=== PATIENT | female | born 1980 | race Caucasian/White ===

== ENCOUNTER 2016-12-01 09:18 | Emergency (ER) | payer OTHER ==
[2016-12-01 09:23] VITALS: RESP 16
[2016-12-01] MEDS ORDERED: fentaNYL 100 MCG/2 ML INJ IVP ONE ×2 (09:31→11:36)
[2016-12-01] MEDS ORDERED: NS 1,000 ML IV ONE (09:32)
[2016-12-01 09:43] LABS: % IMMATURE GRANULYOCYTES 0.7 % (0.0-1.1); ABSOLUTE IMMATURE GRANULOCYTES 0.06 10^3/uL (0.00-0.10); ADD DIFF? NO; ADD MORPH? NO; ADD SCAN? NO; ATYPICAL LYMPHOCYTE FLAG 0 (0-99); FRAGMENT RBC FLAG 0 (0-99); HEMATOCRIT 43.3 % (38.0-47.0); HEMOGLOBIN 14.9 g/dL (12.6-16.3); LEFT SHIFT FLG 0 (0-99); LIPEMIA HEMOLYSIS FLAG 90 (0-99); MEAN CELL HEMOGLOBIN 30.7 pg (27.9-34.1); MEAN CELL HEMOGLOBIN CONCENTR. 34.4 g/dL (32.4-36.7); MEAN CELL VOLUME 89.3 fL (81.5-99.8); MEAN PLATELET VOLUME 10.4 fL (8.7-11.7); PLATELET CLUMPS FLAG 0 (0-99); PLATELET COUNT 259 10^3/uL (150-400); RED BLOOD CELL COUNT 4.85 10^6/uL (4.18-5.33); RED CELL DISTRIBUTION WIDTH 12.4 % (11.5-15.2)
[2016-12-01] MEDS ORDERED: ONDANSETRON 4 MG/2 ML VIAL IVP ONE (09:47)
[2016-12-01] MEDS ORDERED: KETOROLAC 30 MG/1 ML SDV IVP ONE (09:55)
--- NOTE | 2016-12-01 09:57 | EDPHY ---
H & P Stated Complaint: RLQ pain starting last night, worse this AM, sent by PCP Time Seen by Provider: 12/01/16 09:35 HPI/ROS: CHIEF COMPLAINT: Right lower quadrant abdominal pain since last evening HISTORY OF PRESENT ILLNESS: 36-year-old female via private vehicle complaining of acute right lower quadrant abdominal pain with no radiation intermittently since last evening. Notes history of similar over the past several weeks. This morning she had appoint with her neurologist for her seizure disorder history and was told to go to the ER for evaluation of right lower quadrant pain possible appendicitis. Pain is reproducible with palpation and with going over bumps. Positive nausea. No vomiting. Positive diarrhea without melena or hematochezia. No fever or chills. No trauma. Last menstrual period was 2 weeks ago. No abnormal vaginal bleeding or discharge. Last oral intake was last evening PRIMARY CARE PROVIDER: Uriel Melton REVIEW OF SYSTEMS: A ten point review of systems was performed and is negative with the exception of the items mentioned in the HPI PAST MEDICAL & SURGICAL HISTORY: Seizure disorder. x3 SOCIAL HISTORY: nonsmoker PHYSICAL EXAM (Prior to examination, patient consented to physical exam, hands were washed and my usual and customary physical exam procedures followed) 1) GENERAL: Well-developed, well-nourished, alert and oriented. Appears uncomfortable. 2) HEAD: Normocephalic, atraumatic 3) HEENT: Pupils equal, round, reactive to light bilaterally. Sclera anicteric. 4) NECK: Full range of motion, no meningeal signs. 5) LUNGS: Clear auscultation bilaterally, no wheezes, no rhonchi, no retractions. 6) HEART: Regular rate and rhythm, no murmur, no heave, no gallop. 7) ABDOMEN: guarding abdomen, tender to palpation right lower quadrant positive McBurney's point pain. , negative Jaime's, negative Rovsing's, negative peritoneal sign, 8) MUSCULOSKELETAL: Moving all extremities, no focal areas of tenderness, no obvious trauma. No peripheral edema or discoloration. 9) BACK: No CVA tenderness, no midline vertebral tenderness, no fluctuance, no step-off, no obvious trauma, no visual or palpable abnormality. 10) SKIN: No rash, no petechiae. 11) Psychiatric: Patient is oriented X 3, there is no agitation. DIFFERENTIAL DIAGNOSIS: My differential diagnosis includes, but is not limited to, acute appendicitis, acute cholecystitis, bowel obstruction, acute pancreatitis, ovarian torsion, ectopic , gastritis and urinary tract infection. The patient understands that this diagnosis is provisional and can never be 100% accurate. This is a partial list of diagnoses considered. These considerations are based on history, physical exam, past history and reassessment. - Personal History LMP (Females 10-55): 8-14 Days Ago Current Tetanus/Diphtheria Vaccine: Yes Current Tetanus Diphtheria and Acellular Pertussis (TDAP): Yes - Medical/Surgical History Hx Asthma: No Hx Chronic Respiratory Disease: No Hx Diabetes: No Hx Cardiac Disease: No Hx Renal Disease: No Hx Cirrhosis: No Hx Alcoholism: No Hx HIV/AIDS: No Hx Splenectomy or Spleen Trauma: No Other PMH: epilepsy. csection. DNC. laparotomy - Social History Smoking Status: Never smoked Constitutional: Initial Vital Signs Temperature (C) 36.9 C 12/01/16 09:22 Heart Rate 98 12/01/16 09:22 Respiratory Rate 16 12/01/16 09:22 Blood Pressure 150/101 H 12/01/16 09:22 O2 Sat (%) 95 12/01/16 09:22 O2 Delivery Mode Room Air Allergies/Adverse Reactions: morphine Allergy (Verified 12/01/16 09:21) Penicillins Allergy (Verified 12/01/16 09:21) Home Medications: Medication Instructions Recorded Divalproex Sodium [Depakote] 1,000 mg PO 09/16/14 Citalopram 12/01/16 Medical Decision Making - Diagnostics Imaging Results: Imaging Impressions Abdomen Ultrasound 12/01/16 09:55 Impression: 1. Thickened endometrial stripe. This can be seen with endometrial hyperplasia or possibly polyps. 2. Normal-appearing ovaries. Tenderness is greatest over the right ovary without underlying abnormality. 3. Normal right lower quadrant ultrasound. However, the appendix could not be positively identified. If there is high clinical concern for appendicitis, consider CT imaging as clinically directed. Findings discussed with Hemalatha JENNINGS at 11:21 hour, 12/01/2016. Pelvic/Renal Ultrasound 12/01/16 09:55 Impression: 1. Thickened endometrial stripe. This can be seen with endometrial hyperplasia or possibly polyps. 2. Normal-appearing ovaries. Tenderness is greatest over the right ovary without underlying abnormality. 3. Normal right lower quadrant ultrasound. However, the appendix could not be positively identified. If there is high clinical concern for appendicitis, consider CT imaging as clinically directed. Findings discussed with Hemalatha JENNINGS at 11:21 hour, 12/01/2016. Abdomen CT 12/01/16 11:32 Impression: 1. Air in the otherwise normal bladder, which could be related to instrumentation or infection. Elongated right lobe of the liver, which could be related to a Fady's lobe (normal variant) or hepatomegaly. 2. Likely benign 3 mm right lower lobe nodule. In a nonsmoker with no cancer history, no further follow up is recommended. In a high-risk patient, unenhanced chest CT in one year is considered optional per Fleischner Society guidelines. 4. Additional findings as above. Findings discussed with Dang Garcia PA-C, on 12/01/2016 at 1218 hours. ED Course/Re-evaluation: 11:30 a.m.: Abdominal ultrasonography is nondiagnostic for appendicitis, nonvisualized. Patient remains focally tender. Recommended CT imaging. Indications risks benefits discussed with patient she verbalizes consent. 12:35 p.m.: Re-evaluation. Discussed her imaging results showing a nonvisualized appendix however no secondary signs of appendicitis. She remains guarding her abdomen is focally tender at McBurney's point. In addition she is noted to have air in her bladder specific etiology of which is not completely clear she has had no instrumentation performed in the emergency department. On further interviewing she notes no history of pneumaturia or fecaluria. I discussed the case with Dr. Carrasco in the ER. Will consult with General surgery. 12:45 p.m.: Phone consultation Dr. Chris Herring who will consult in the ER. - Data Points Laboratory Results: Laboratory Results 12/01/16 09:35 12/01/16 09:35 12/01/16 12/01/16 12/01/16 09:50 09:35 09:35 WBC RBC Hgb Hct MCV MCH MCHC RDW Plt Count MPV Neut % (Auto) Lymph % (Auto) [place] % (Auto) Eos % (Auto) Baso % (Auto) Nucleat RBC Rel Count Absolute Neuts (auto) Absolute Lymphs (auto) Absolute Monos (auto) Absolute Eos (auto) Absolute Basos (auto) Absolute Nucleated RBC Immature Gran % Immature Gran # Sodium Potassium Chloride Carbon Dioxide Anion Gap BUN Creatinine Estimated GFR Glucose Calcium Total Bilirubin 0.4 mg/dL mg/dL (0.1-1.4) Conjugated Bilirubin 0.3 mg/dL mg/dL (0.0-0.5) Unconjugated Bilirubin 0.1 mg/dL mg/dL (0.0-1.1) AST 24 IU/L IU/L (14-46) ALT 32 IU/L IU/L (9-52) Alkaline Phosphatase 102 IU/L IU/L (38-126) Total Protein 8.0 g/dL g/dL (6.3-8.2) Albumin 4.5 g/dL g/dL (3.5-5.0) Lipase 94.0 IU/L IU/L (23-300) Beta HCG, Qual NEGATIVE Urine Color YELLOW Urine Appearance HAZY Urine pH 8.0 H (5.0-7.5) Ur Specific [place] 1.008 (1.002-1.030) Urine Protein NEGATIVE (NEGATIVE) Urine Ketones NEGATIVE (NEGATIVE) Urine Blood NEGATIVE (NEGATIVE) Urine Nitrate NEGATIVE (NEGATIVE) Urine Bilirubin NEGATIVE (NEGATIVE) Urine Urobilinogen NEGATIVE EU EU (0.2-1.0) Ur Leukocyte Esterase NEGATIVE (NEGATIVE) Urine RBC 3-5 /hpf H /hpf (0-3) Urine WBC 1-3 /hpf /hpf (0-3) Ur Epithelial Cells TRACE /lpf /lpf (NONE-1+) Urine Mucus TRACE /lpf /lpf (NONE-1+) Urine Glucose NEGATIVE (NEGATIVE) 12/01/16 12/01/16 09:35 09:35 WBC 8.27 10^3/uL 10^3/uL (3.80-9.50) RBC 4.85 10^6/uL 10^6/uL (4.18-5.33) Hgb 14.9 g/dL g/dL (12.6-16.3) Hct 43.3 % % (38.0-47.0) MCV 89.3 fL fL (81.5-99.8) MCH 30.7 pg pg (27.9-34.1) MCHC 34.4 g/dL g/dL (32.4-36.7) RDW 12.4 % % (11.5-15.2) Plt Count 259 10^3/uL 10^3/uL (150-400) MPV 10.4 fL fL (8.7-11.7) Neut % (Auto) 56.7 % % (39.3-74.2) Lymph % (Auto) 34.3 % % (15.0-45.0) [place] % (Auto) 7.0 % % (4.5-13.0) Eos % (Auto) 0.8 % % (0.6-7.6) Baso % (Auto) 0.5 % % (0.3-1.7) Nucleat RBC Rel Count 0.0 % % (0.0-0.2) Absolute Neuts (auto) 4.68 10^3/uL 10^3/uL (1.70-6.50) Absolute Lymphs (auto) 2.84 10^3/uL 10^3/uL (1.00-3.00) Absolute Monos (auto) 0.58 10^3/uL 10^3/uL (0.30-0.80) Absolute Eos (auto) 0.07 10^3/uL 10^3/uL (0.03-0.40) Absolute Basos (auto) 0.04 10^3/uL 10^3/uL (0.02-0.10) Absolute Nucleated RBC 0.00 10^3/uL 10^3/uL (0-0.01) Immature Gran % 0.7 % % (0.0-1.1) Immature Gran # 0.06 10^3/uL 10^3/uL (0.00-0.10) Sodium 139 mEq/L mEq/L (134-144) Potassium 4.4 mEq/L mEq/L (3.5-5.2) Chloride 106 mEq/L mEq/L (97-110) Carbon Dioxide 22 mEq/l mEq/l (22-31) Anion Gap 11 mEq/L mEq/L (8-16) BUN 10 mg/dL mg/dL (7-23) Creatinine 0.6 mg/dL mg/dL (0.6-1.0) Estimated GFR > 60 Glucose 96 mg/dL mg/dL (70-100) Calcium 9.8 mg/dL mg/dL (8.5-10.4) Total Bilirubin Conjugated Bilirubin Unconjugated Bilirubin AST ALT Alkaline Phosphatase Total Protein Albumin Lipase Beta HCG, Qual Urine Color Urine Appearance Urine pH Ur Specific [place] Urine Protein Urine Ketones Urine Blood Urine Nitrate Urine Bilirubin Urine Urobilinogen Ur Leukocyte Esterase Urine RBC Urine WBC Ur Epithelial Cells Urine Mucus Urine Glucose Medications Given: Discontinued Medications Fentanyl (Sublimaze) 50 mcg IVP EDNOW ONE Stop: 12/01/16 09:32 Last Admin: 12/01/16 09:39 Dose: 50 mcg Fentanyl (Sublimaze) 100 mcg IVP EDNOW ONE Stop: 12/01/16 11:37 Last Admin: 12/01/16 11:55 Dose: 100 mcg Sodium Chloride (Ns) 1,000 mls @ 0 mls/hr IV ONCE ONE PRN Reason: Wide Open Stop: 12/01/16 09:33 Last Admin: 12/01/16 09:39 Dose: 1,000 mls Ketorolac Tromethamine (Toradol) 30 mg IVP EDNOW ONE Stop: 12/01/16 09:56 Last Admin: 12/01/16 10:40 Dose: 30 mg Ondansetron HCl (Zofran) 4 mg IVP EDNOW ONE Stop: 12/01/16 09:48 Last Admin: 12/01/16 10:40 Dose: 4 mg Departure - Departure Disposition: Home, Routine, Self-Care Condition: Good Referrals: URIEL MELTON [Primary Care Provider] - 12/04/16
[2016-12-01 10:00] LABS: COLOR YELLOW; LEUKOCYTE ESTERASE,URINE NEGATIVE (NEGATIVE); NITRITE,URINE NEGATIVE (NEGATIVE)
[2016-12-01 10:02] LABS: ANION GAP 11 mEq/L (8-16); CALCIUM 9.8 mg/dL (8.5-10.4); CARBON DIOXIDE 22 mEq/l (22-31); CHLORIDE 106 mEq/L (97-110); CREATININE 0.6 mg/dL (0.6-1.0); GLOMERULAR FILTRATION RATE > 60; GLUCOSE 96 mg/dL (70-100); POTASSIUM 4.4 mEq/L (3.5-5.2); SODIUM 139 mEq/L (134-144)
[2016-12-01 10:03] LABS: ALBUMIN 4.5 g/dL (3.5-5.0); BILIRUBIN,TOTAL 0.4 mg/dL (0.1-1.4); BILIRUBIN-CONJUGATED 0.3 mg/dL (0.0-0.5); BILIRUBIN-UNCONJUGATED 0.1 mg/dL (0.0-1.1)
[2016-12-01 10:03] LABS: MUCUS TRACE /lpf (NONE-1+)
[2016-12-01] MEDS ORDERED: IOPAMIDOL (ISOVUE-300) 100 ML BTL IV ONE (11:37)
--- NOTE | 2016-12-01 14:33 | GCON ---
[f rep st] CONSULTATION CONSULTATION REQUESTED BY: Oziel Jameson. HISTORY: The patient is a 36-year-old white female, who had the acute onset of a dull right lower quadrant pain at 5 p.m. yesterday. It advanced from an achy to a sharper pain and moving made it worse. As time went on it progressively became more intense. She did not have dinner last night, and slept poorly overnight. She saw her neurologist this morning, who directed her to come to the emergency department. She has not had a recent upper respiratory tract infection, but did have diarrhea today. She has not had any travel outside the [place], or antibiotic use in the last 6 months. There is no history of inflammatory bowel disease. She has had a similar episode a week and a half ago, which lasted approximately a minute. Abdominal surgeries includes 3 C-sections. After her 2nd she had retained placenta that required 2 D&Cs. On the 2nd D&C, she had a uterine perforation requiring an exploratory laparotomy. She presented to her neurologist this morning and was referred to the emergency room. Ultrasound evaluation was carried out. Appendix could not be identified. Ultrasound of her kidney was unremarkable. A CAT scan was performed, which showed 2 focal areas of air in her anterior bladder wall. It did not show any signs of appendicitis, it did not show any signs of thickened terminal ileum, it did show constipation. Mesenteric adenitis was also identified. I was asked to come see the patient, to help establish a diagnosis. SOCIAL HISTORY: She does not smoke. She drinks alcohol on a very rare basis. ALLERGIES: As a young girl, she had a rash with penicillin, and does not take it currently. She has had morphine in the past and also has had a rash with morphine. MEDICATIONS: She takes Depakote 1000 mg q.h.s. for seizures. Her last seizure was 2-1/2 half years ago. There is no history of rheumatic fever, tuberculosis, hepatitis or HIV. She did have 3 units of blood with her uterine perforation. PAST MEDICAL HISTORY: She does have asthma and has used an albuterol inhaler once in the last year. She had a right breast lump, which led to a mammogram, and was felt to be unremarkable and nothing was done. REVIEW OF SYSTEMS: Otherwise quite negative. PHYSICAL EXAMINATION: GENERAL: She feels better with her legs drawn up. HEENT: Her skull is normocephalic and atraumatic. NEURO: No focal lateralizing neurologic findings. GCS is 15. She is pleasant, awake, and alert. NECK: Nontender. Spinal processes were carefully palpated. Thyroid is not enlarged. Bruits are not appreciated. BACK: Carefully palpated. Back is grossly normal. There is no cervical, supraclavicular lymphadenopathy. There is no axillary or inguinal lymphadenopathy. LUNGS: Clear to auscultation. CHEST: Stable to AP and lateral compression. Note is made, she does not recall any trauma to her right flank or abdomen. CARDIAC: Shows S1, S2 to be normal. Normal split of S2, without murmurs, rubs , or gallops. ABDOMEN: Generous. She is tender with cough at McBurney's point at a level of 7/10. Bowel sounds are normal. Psoas and obturator signs are negative to palpation. The left upper quadrant is 1 on a scale of 1-10, left mid abdomen is 1, left lower quadrant is 1, epigastrium is 1, periumbilical area is 1, suprapubic area is 2. Right upper quadrant is 3, right mid abdomen 7, right lower quadrant is 4. Over the iliac crest it is also 6. LABORATORY DATA: Her white blood cell count is 8.7. Hematocrit is 43, her platelet count is 256. Beta HCG is negative. Her lipase is negative. Her urine is unremarkable. There is a 3 mm nodule in her right middle lobe. IMPRESSION: This patient has right lower quadrant pain, which in of itself is impressive and suggests appendicitis. Weighed against is that there is a normal white blood cell count, normal temperature and unremarkable findings on CT. Additional diagnoses that are excluded are inflammatory bowel disease, as there is no thickening of the terminal ileum. I cannot absolutely rule out a Meckel's diverticulum, but I did not see that on the CAT scan. There was no ovarian pathology identifiable at this time. Mesenteric adenitis is present. I suggest that is the most probable diagnosis. Constipation is an additional problem. I would suggest stool for enteric pathogens. The two air bubbles in the bladder wall, I feel are unrelated to this process, and can be followed up by Urology. Certainly, I would treat her for discomfort, with the understanding I think she will be feeling better in the next 2-3 days, and if they do not, then reevaluation would be appropriate. The patient understands the diagnostic conundrum. She understands the planned procedure. /[id number]/MODL MTDD
[2016-12-01 14:46] VITALS: O2SAT 96
[2016-12-01 14:48] VITALS: BP 117/67; PULSE 77; TEMP 97.9
== END 2016-12-01 14:47 | disposition home or self-care (01) ==
DX: R10.31 Right lower quadrant pain (principal); N32.9 Bladder disorder, unspecified
CPT/HCPCS: 96374; J1885; J2405; J3010; Q9967

== ENCOUNTER 2017-10-11 09:41 | Emergency (ER) | payer OTHER ==
[2017-10-11 09:48] VITALS: TEMP 98.1
[2017-10-11 10:03] VITALS: BP 143/77; PULSE 92; RESP 16
--- NOTE | 2017-10-11 10:08 | EDPHY ---
H & P Time Seen by Provider: 10/11/17 09:54 HPI/ROS: CHIEF COMPLAINT: Left lower back pain HISTORY OF PRESENT ILLNESS: This patient is a 37 y/o female complaining of left lower back pain. Last night around dinner time, she developed a sudden sharp shooting pain in her left lower back. This has remained constant and moderate. The pain worsens with change in position or sitting. Associated with LLQ abdominal pain, nausea and one episode of loose stool. She took 400mg ibuprofen this morning for relief. Concerned about kidney stone. She called her PCP, Dr. Roca's office, and they recommended she present to the emergency department. LMP was 2 weeks ago, regular. Family history significant for kidney stones. Denies urinary sx, fever, vomiting. REVIEW OF SYSTEMS: A 10 point review of systems was performed and is negative with the exception of the elements mentioned in the history of present illness. Past Medical/Surgical History: Csection BTL Epilepsy Social History: Nonsmoker. Lives in [place]. Employed. Smoking Status: Never smoked Physical Exam: General Appearance: Alert, pleasant Eyes: Pupils equal and round, no conjunctival pallor or injection ENT, Mouth: Mucous membranes moist Neck: Normal inspection Respiratory: Lungs are clear to auscultation Cardiovascular: Regular rate and rhythm Gastrointestinal: Abdomen is soft and non-tender Back: Left lower lumbar paraspinous tenderness Neurological: A&O, motor/sensory intact, slow steady gait Skin: Warm and dry Extremities: Normal inspection Psychiatric: Mood and affect normal Constitutional: Initial Vital Signs Temperature (C) 36.7 C 10/11/17 09:45 Heart Rate 105 H 10/11/17 09:45 Respiratory Rate 20 10/11/17 09:45 Blood Pressure 163/96 H 10/11/17 09:45 O2 Sat (%) 97 10/11/17 09:45 O2 Delivery Mode Room Air Allergies/Adverse Reactions: morphine Allergy (Verified 10/11/17 09:45) Penicillins Allergy (Verified 10/11/17 09:45) Home Medications: Medication Instructions Recorded Divalproex Sodium [Depakote] 1,000 mg PO 09/16/14 Medical Decision Making - Diagnostics Imaging Results: CT abd/pelvis: NAD, no kidney stone Imaging: Discussed imaging studies w/ counter checker Radiologist ED Course/Re-evaluation: 37 y/o female presents with left lower back pain onset yesterday evening. Exam reveals left lower lumbar paraspinous tenderness. Plan for UA. Plan to administer 15mg IV Toradol and lidocaine patch for pain relief. UA negative for UTI. 1+ blood present. Clinical presentation most c/w low back strain, will r/o kidney stone. Plan for CT abdomen/pelvis. 11:[address] Rucker, radiologist. CT abdomen/pelvis negative. Results d/w patient. Plan to discharge home in good condition. Abd remains benign. Follow up and return precautions discussed. She is comfortable with this plan. Differential Diagnosis: Differential diagnosis includes though it is not limited to appendicitis, cholecystitis, diverticulitis, pyelonephritis, bowel perforation, small bowel obstruction. - Data Points Medications Given: Discontinued Medications Ketorolac Tromethamine (Toradol) 15 mg IVP EDNOW ONE Stop: 10/11/17 10:31 Last Admin: 10/11/17 10:35 Dose: 15 mg Miscellaneous Medication (Icy Hot Lidocaine/Menthol 4%/1% Patch) 1 patch TD EDNOW ONE Stop: 10/11/17 10:31 Last Admin: 10/11/17 10:35 Dose: 1 patch Departure - Departure Disposition: Home, Routine, Self-Care Clinical Impression: Low back pain Qualifiers: Chronicity: acute Back pain laterality: left Sciatica presence: without sciatica Qualified Code(s): M54.5 - Low back pain Condition: Good Instructions: Acute Low Back Pain (ED) Additional Instructions: 1. Follow up with your primary care provider in 2-3 days if you are not feeling better. 2. Take ibuprofen 600mg every 6 hours with food as needed for pain. You may also take Tylenol 650 mg every 6 hours. Alternate these two medications every 6 hours. 3. Use lidocaine patches as directed as needed for pain. Apply ice 20 minutes on , 20 minutes off as we discussed. This will be most helpful in the first 48 hours. 4. Return to the emergency department for severe pain, fever, numbness, difficulty walking, change in location or nature of pain or other concerns. Referrals: Arlen Roca MD [Primary Care Provider] - As per Instructions Report Scribed for: Mari Carrasco Report Scribed by: Lacey Gallegos Date of Report: 10/11/17 Time of Report: 10:08 Physician Review and Approval Statement: 10/11/17 10:08 Portions of this note were transcribed by a medical assistant ob gyn. I personally performed a history, physical exam, medical decision making, and confirmed accuracy of information the transcribed note.
[2017-10-11] MEDS ORDERED: KETOROLAC 15 MG/1 ML SDV IVP ONE (10:30)
[2017-10-11] MEDS ORDERED: LIDOCAINE 4%/MENTHOL 1% PATCH TD ONE (10:30)
[2017-10-11 11:39] VITALS: O2SAT 95
[2017-10-11] MEDS ORDERED: PATCH REMOVAL 1 EA PATCH TD SCH (21:00)
== END 2017-10-11 11:39 | disposition home or self-care (01) ==
DX: M54.5 Low back pain (principal)
CPT/HCPCS: 96374; J1885

== ENCOUNTER 2019-01-11 13:50 | Emergency (ER) | payer OTHER | END 2019-01-11 17:21 | disposition home or self-care (01) ==